=== PATIENT | female | born 2000 | race Two or more races ===

== ENCOUNTER 2022-08-19 14:48 | Outpatient (CLI) | payer OTHER | END 2022-08-19 17:25 | disposition home or self-care (01) | LOC: PRENATAL 14:48 | PROVIDERS: ATTEND Obstetrics & Gynecology Maternal & Fetal Medicine | DX: O26.849 Uterine size-date discrepancy, unspecified trimester (principal); O35.9XX0 Maternal care for (suspected) fetal abnormality and damage, unspecified, not applicable or unspecified; Z3A.29 29 weeks gestation of pregnancy ==

== ENCOUNTER 2022-09-30 14:51 | Outpatient (CLI) | payer OTHER | END 2022-09-30 15:45 | disposition home or self-care (01) | LOC: PRENATAL 14:51 | PROVIDERS: ATTEND Obstetrics & Gynecology Maternal & Fetal Medicine | DX: O26.849 Uterine size-date discrepancy, unspecified trimester (principal); O36.8199 Decreased fetal movements, unspecified trimester, other fetus; O35.9XX0 Maternal care for (suspected) fetal abnormality and damage, unspecified, not applicable or unspecified; O24.419 Gestational diabetes mellitus in pregnancy, unspecified control; Z3A.34 34 weeks gestation of pregnancy ==

== ENCOUNTER 2022-10-14 06:33 | Emergency (ER) | payer OTHER ==
[~2022-10-14] VITALS: Ht 149.9 cm; Wt 66.2 kg
== END 2022-10-14 10:38 | disposition home or self-care (01) ==
LOC: ER 06:33
DX: O26.893 Other specified pregnancy related conditions, third trimester (principal); Z3A.37 37 weeks gestation of pregnancy; L29.9 Pruritus, unspecified

== ENCOUNTER 2022-10-28 13:45 | Inpatient (IN) | payer OTHER ==
[~2022-10-28] VITALS: Ht 149.9 cm; Wt 2.7 kg
[2022-11-05] MEDS ORDERED: VISTARIL25 MG PO (07:51)
[2022-11-05] MEDS ORDERED: PRENATAL TABLE1 EAC1 PO (07:52)
== END 2022-11-08 13:42 | disposition home or self-care (01) | DRG 788 ==
LOC: OB/GYN 11-05 06:33 → LDR 11-05 06:33 → OB/GYN 11-05 13:45 → O/R 11-05 19:21 → OB/GYN 11-05 21:56
PROVIDERS: ADMIT Obstetrics & Gynecology; ATTEND Obstetrics & Gynecology
PROC: 4A1HXCZ Monitoring of Products of Conception, Cardiac Rate, External Approach (ICD-10-PCS; 2022-11-05)
PROC: 10D00Z1 Extraction of Products of Conception, Low, Open Approach (ICD-10-PCS; principal; 2022-11-05 19:45)
DX: O33.8 Maternal care for disproportion of other origin (principal); Z3A.40 40 weeks gestation of pregnancy; Z37.0 Single live birth; Z20.822 Contact with and (suspected) exposure to COVID-19